=== PATIENT | female | born 1955 | race Caucasian/White ===

== ENCOUNTER → 2017-04-09 | Day surgery (SDC) | payer OTHER ==
[~2017-04-09] VITALS: Ht 174 cm; Wt 73.0 kg
[~2017-04-09] MED LIST: ASPI-973 PO; CETI10CA PO; ESTR1TAB24 PO; IBUP-1827 PO; Lactated Ringer's 1,000 ML IV ONE; PROG100C3 PO; Propofol 10,000 mCg/mL 20 mL Inj ONE
[2017-04-09 07:39] VITALS: BP 114/71; PULSE 72; RESP 14; O2SAT 97
--- NOTE | 2017-04-09 07:52 | PCM.HPANE ---
Patient Data Surgeon Admitting Provider: Attending Provider:Wilder Spann MD Primary Care Physician:Rocio Farmer Other Provider:C[employer]ellers Anesthesia Reason for Visit Colonic Polyp Ht/WT & BMI Height (Feet): 5 Height (Inches): 8.5 Weight (Kilograms): 73 Body Mass Index 24.00 Allergies Coded Allergies: No Known Allergies (Unverified , 05/28/16) Past Anesthesia History Anesthesia History: Denies:: Abnormal Airway, Anesthesia Reactions, Difficult Intubation, Fam Anesthesia Reaction, Fam Malignant Hypertherm, Malignant Hyperthermia Diabetes History Hx Diabetes?: No MRSA MRSA: No Medications Reported Medications Ibuprofen 600 Mg [id number] Mg PO prn PRN For Pain Ref 0 05/28/16 Cetirizine HCl (Zyrtec)10 Mg [id number] Mg PO DAILY Ref 0 05/28/16 Progesterone,Micronized (Prometrium)100 Mg [id number] Mg PO DAILY 05/28/16 Estradiol 1 Mg Tablet1 Mg PO DAILY Ref 0 05/28/16 Aspirin 81 Mg [id number] Mg PO DAILY Ref 0 05/28/16 History History of ENT Problems?: No HEENT History: Denies:: Abnormal Airway Difficult Intubation Dysphagia Hearing Problem Denture Type: None Teeth Condition: Within Normal Limits Hx of Heart Problems?: No Cardiovascular History: Denies:: AICD Chest Pain Heart Murmur Hypertension Pacemaker Rheumatic Fever Thrombophlebitis Valvular Heart Disease Hx of Respiratory Problem?: No Respiratory History: Denies:: Asthma COPD Dyspnea Emphysema Hemoptysis Tuberculosis Hx Neurologic Problems?: No Neurological History: Denies:: Alzheimer's Disease CVA Dementia Dizziness Headaches Seizures Hx of GI Problems?: Yes Hx of Problems?: No Genitourinary History: Denies:: HX of Hemodialysis Kidney Stones Urinary Tract Infection Female Hx: Denies:: Endometriosis Pelvic Inflammatory Problems with Breasts? Hx Musculoskeletal Problems?: Yes Musculoskeletal History: Positive for:: Joint Replacement Denies:: Back Injury Fibromyalgia Musculoskeletal Trauma Hx of Psycho/Social Problems?: No Psycho Social History: Denies:: Anxiety Bipolar Disorder Hx Depression Hx Surgeries?: Yes (APPENDECTOMY 198, LEFT KNEE MENISECTOMY 2006) Hx Any Other Health Problems?: Yes Other History: Positive for:: Hospitalization Denies:: Cancer Endocrine Disease Thyroid Disease Hx Diabetes: No Hx Alcohol Use: Yes (OCC WINE)Hx Substance Use: No Smoking Status: Never Smoker Have You Smoked inLast 12 mo: No Stop/Bang Treated for Sleep Apnea?: No Do You Have a CPAP Machine?: No S-Snoring: Do You Snore Loudly: No T-Tired: feel tired, fatigued: No O-Obsered: Observed not breath: No P-Blood Pressure: treated: No B- Body Mass Index > 35 kg/m2: No A- Age over 50: Yes N- Neck Large Circumference: No G- Gender Male: No ORESTES Total Score: 1 Risk Assessment Category Category 1A: Patient has history of documented sleep apnea, and HAS NOT received any narcotic, sedative or anesthesia administration during this stay. Category 1B: Patient has history of documented sleep apnea, and HAS received any narcotic , sedative or anesthesia administration during this stay Category 2: Patient has SUSPECTED Obstructive Sleep Apnea, and HAS received any narcotic , sedative or anesthesia administration during this stay. Category 3: Patient has SUSPECTED Obstructive Sleep Apnea and HAS NOT received narcotic, sedative or anesthesia administration during this stay. Category 4: Outpatient in Procedural Areas with known sleep apnea or who screen positive for High Risk via the STOP/BANG questionnaire. Exam Exam Vital Signs Vital Signs Date Time Temp Pulse Resp B/P Pulse Ox O2 Delivery O2 Flow Rate FiO2 04/09/17 07:39 36.6 72 14 114/71 97 Room Air General Appearance: Alert, Oriented X3 HEENT/AIRWAY: MP 1 Lungs: Clear to Auscultation Heart: Exam Unremarkable Plan Impression Patient chart reviewed, patient interviewed and anesthestic plan with risks, benefits, and alternatives discussed, and informed consent obtained. NPO per Anesth. Guidelines: Yes ASA Physical Status: ASA2 Mod Systemic Disease Anesthetic Plan: GA Bene/Risks/Altern/Consents: Yes HP Complete Prior to Induction: Yes Wilder Adame MD Apr 09, 2017 07:52
[2017-04-09 08:18] VITALS: BP 105/66; PULSE 62; RESP 15; O2SAT 99
[2017-04-09 08:28] VITALS: BP 112/75; PULSE 63; RESP 17; O2SAT 99
--- NOTE | 2017-04-09 08:31 | ENDO ---
[address] [address] ENDOSCOPY PROCEDURE PATIENT: JODY ALBRIGHT : 1955 MR#: [id number] ADMIT: 04/09/2017 JOB ID: [id number] DATE: 04/09/2017 TYPE OF OPERATION: Colonoscopy with biopsy. PREOPERATIVE DIAGNOSIS(ES): History of colon polyps. POSTOPERATIVE DIAGNOSIS(ES): 1. A 2 mm sigmoid polyp removed by cold biopsy forceps. 2. Sigmoid diverticulosis. 3. Small internal hemorrhoids. ANESTHESIA: Monitored anesthesia care. COMPLICATION: None. ESTIMATED BLOOD LOSS: Minimal. DESCRIPTION OF PROCEDURE: After risks and benefits were explained to the patient, informed consent was obtained. After anesthesia administered, the colonoscope was then inserted from the rectum to the cecum. Mucosa carefully examined. Prep of the patient excellent. After the procedure was done, the scope was withdrawn and the procedure terminated. FINDINGS: Upon inspection of the anus, no masses, hemorrhoids, ulcers, fissures that were seen. Throughout the entire examination, there was a 2 mm sigmoid polyp removed by cold biopsy forceps. There was also a mild sigmoid diverticulosis. No other polyps or masses were seen. Retroflexion showed small internal hemorrhoids. IMPRESSION: 1. Small internal hemorrhoids. 2. A 2 mm sigmoid polyp removed by cold biopsy forceps. 3. Mild sigmoid diverticulosis. RECOMMENDATION: 1. High-fiber diet. 2. Await pathology results. 3. Repeat colonoscopy in five years given history of colon polyps.
[2017-04-09 08:39] VITALS: BP 128/89; PULSE 60; RESP 15; O2SAT 99
--- NOTE | 2017-04-09 08:56 | PCM.ANEP1 ---
Post Anesthesia PACU Phase 1 Assessment Vital Signs Vital Signs Date Time Temp Pulse Resp B/P Pulse Ox O2 Delivery O2 Flow Rate FiO2 04/09/17 08:39 60 15 128/89 99 Room Air 04/09/17 08:28 63 17 112/75 99 Room Air 04/09/17 08:18 62 15 105/66 99 Room Air 04/09/17 07:39 36.6 72 14 114/71 97 Room Air Anesthetic Administered: GA Level of Alertness: Awake, talking KEARNS's with Equal Strength: Yes Pain: No Nausea or Vomiting: No CV Function & Hydration Stable: Yes Airway Device: Oxygen Delivery: Room Air Lungs: Clear to Auscultation Dermatome Level: Full Sensation PACU Phase 2 Assessment Complications: No Follow up Care: No Patient Instructions Provided: N/A Wilder Adame MD Apr 09, 2017 08:56
--- NOTE | 2017-04-11 18:33 | PATH ---
SURGICAL PATHOLOGY Attending Physician:Wilder Spann MD CASE STATUS: Signed Out PATIENT NAME: JODY ALBRIGHT PID: [id number] : 1955 DATE COLLECTED:04/09/2017 15:30 SPECIMEN: Colon, Polyp CLINICAL HISTORY: 1). SIGMOID COLON POLYP FINAL DIAGNOSIS: 1.SIGMOID COLON POLYP, BIOPSY: HYPERPLASTIC POLYP. ICD10 D12.5 GROSS DESCRIPTION: The specimen is received in one formalin filled container labeled with the patient's name, sublabeled "sigmoid colon polyp" and consists of 2 portions of tissue which aggregate to 0.2 x 0.2 x 0.2 CM. The specimen is entirely submitted in one cassette. 04/09/2017DC MICRO DESCRIPTION: See diagnosis. ICD-9 CODES: CPT CODES: 1: 86595 Electronically Signed Out Preet Oneil MD, Ph.D. [facility] Pathology [facility] [address], [place] [address] Technical component performed at [facility], [facility] [address], [place], [address]
== END | disposition home or self-care (01) ==
LOC: END 02:20
PROVIDERS: ATTEND Internal Medicine Gastroenterology
DX: Z12.11 Encounter for screening for malignant neoplasm of colon (principal); Z86.010 Personal history of colon polyps; K63.5 Polyp of colon; K57.30 Diverticulosis of large intestine without perforation or abscess without bleeding; K64.8 Other hemorrhoids
CPT/HCPCS: 45380; J2704; J7120